=== PATIENT | female | born 1975 | race Caucasian/White ===

== ENCOUNTER 2020-04-19 22:09 | Emergency (ER) | payer BC ==
[2020-04-19] MEDS ORDERED: Ticagrelor 90 MG Tab PO ONE (22:15)
[2020-04-19] MEDS ORDERED: Famotidine 20 MG/2 ML SDV IVPUSH ONE (22:15)
[2020-04-19] MEDS ORDERED: Sodium Chloride 0.9% 10 ML Syringe FLUSH PRN (22:15)
[2020-04-19] MEDS ORDERED: Aspirin 81 MG Tab.Chew CHEW ONE (22:15)
--- NOTE | 2020-04-19 22:15 | EDM.PDOC ---
ED HPI GENERAL MEDICAL PROBLEM - General Chief Complaint: Chest Pain Stated Complaint: chest pain Time Seen by Provider: 04/19/20 22:10 Source of Information: Reports: Patient, EMS, EMS Notes Reviewed, Old Records ([facility] chart/EMR) History Limitations: Reports: Uncooperative - History of Present Illness INITIAL COMMENTS - FREE TEXT/NARRATIVE: The patient was brought to the emergency room via ambulance with EMT accompaniment with no treatment in route. Note the patient began experiencing 9/10 retrosternal chest pressure and tightness, which was associated with some nausea and diaphoresis with symptoms similar to her panic attacks in the past. The patient did take 2 coated baby aspirin shortly prior to arrival of the value analyst with no other treatment prior to arrival to this facility. Note that patient did have some heartburn type symptoms at about 1900 hrs. this evening. The patient denies any radiation of the chest pain, heart flutter, dizziness, orthostasis, orthopnea, paresthesias, recent decreased exercise tolerance, or any other anginal-type symptoms. No recent history of other abdominal pain, emesis, diarrhea, melena, gross hematochezia, or any food intolerance, including fatty foods, etc.. No history of gross hematuria, colic, or other UTI symptoms. The patient also denies any recent fever, cough, wheezing, dyspnea, etc.. Symptoms are completely resolved at time of arrival to this facility. Note that the patient also did take her meloxicam and two 5 mg tablets of oxycodone at 1600 hrs. this afternoon secondary to chronic hip pain. Onset: Today, Sudden Onset Date: 04/19/20 Onset Time: 21:00 Duration: Resolved Prior to Arrival Location: Reports: Chest. Denies: Head, Neck, Abdomen, Back, Upper Extremity, Left, Upper Extremity, Right, Radiates to Quality: Reports: Pressure, Same as Previous Episode Severity: Severe Improves with: Reports: Medication Worsens with: Reports: None Context: Reports: Other (As above). Denies: Sick Contact, Trauma Associated Symptoms: Reports: Chest Pain, Diaphoresis, Nausea/Vomiting (No emesis). 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, Other Medication(s) (As above) Sternum Pain Score (Numeric/FACES): 0 - Related Data Allergies Allergy/AdvReac Type Severity Reaction Status Date / Time No Known Allergies Allergy Verified 04/19/20 22:10 Home Meds: Home Meds Aspirin [Aspirin EC] 81 mg PO ASDIRECTED 04/19/20 [History] Meloxicam 15 mg PO DAILY 04/19/20 [History] traMADol [Ultram] 50 mg PO Q6HR 04/19/20 [History] Past Medical History HEENT History: Reports: Impaired Vision, Other (See Below) Other HEENT History: Patient wears glasses Gastrointestinal History: Reports: Gastritis, GERD 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 Psychiatric History: Reports: Addiction, Anxiety, Depression, Panic Attack, Other (See Below) Other Psychiatric History: Chronic narcotic use, including tramadol and oxy codone, for her arthritis. - Infectious Disease History Infectious Disease History: Reports: Mononucleosis, Other (See Below) Other Infectious Disease History: Sepsis from cellulitis infection on 12/04/2009. - Past Surgical History GI Surgical History: Reports: EGD, Other (See Below) Other GI Surgeries/Procedures: Negative EGD on 12/13/2001. - Past Imaging History Past Imaging History: Reports: Mammogram (Last on 04/20/2019.), MRI (Right ankle on 10/09/2010), Stress Testing (Negative Cardiolite stress test on 03/27/2005 with ejection fraction of 55%.), Ultrasound (Bladder and pelvic ultrasound on 03/31/2013.) Social & Family History - Tobacco Use Smoking Status *Q: Current Every Day Smoker Tobacco Use Within Last Twelve Months: Cigarettes Years of Tobacco use: 25 Packs/Tins Daily: 1 Used Tobacco, but Quit: No Smoking Cessation Information Provided To Patient: Yes ED ROS GENERAL - Review of Systems Review Of Systems: Comprehensive ROS is negative, except as noted in HPI. ED EXAM, GENERAL - Physical Exam Exam: See Below General Appearance: Alert, WD/WN, No Apparent Distress, Anxious (Moderate) Head: Atraumatic, Normocephalic. No: Facial Swelling, Facial Tenderness, Sinus Tenderness Neck: Normal Inspection, Supple, Non-Tender, Full Range of Motion. No: Carotid Bruit, Lymphadenopathy (L), Lymphadenopathy (R), Thyromegaly Respiratory/Chest: No Respiratory Distress, Lungs Clear, Normal Breath Sounds, No Accessory Muscle Use, Chest Non-Tender. No: Pleural Rub, Retractions Cardiovascular: Normal Peripheral Pulses, Regular Rate, Rhythm, No Edema, No Gallop, No JVD, No Murmur, No Rub. No: Gallop/S3, Gallop/S4, Friction Rub Peripheral Pulses: 2+: Radial (L), Radial (R) GI/Abdominal: Normal Bowel Sounds, Soft, Non-Tender, No Organomegaly, No Distention, No Abnormal Bruit, No Mass. No: Guarding (Female) Exam: Deferred Rectal (Female) Exam: Deferred Back Exam: Normal Inspection, Full Range of Motion. No: CVA Tenderness (L), CVA Tenderness (R), Muscle Spasm Extremities: Normal Inspection, Normal Range of Motion, Non-Tender, No Pedal Edema, Normal Capillary Refill. No: Phoebe's Sign Neurological: Alert, Oriented, CN II-XII Intact, Normal Cognition, Normal Gait, No Motor/Sensory Deficits Psychiatric: Anxious (Moderate), Depressed Mood (Mild to moderate with adequate eye contact) Skin Exam: Warm, Dry, Intact, Normal Color, No Rash, Tattoo(s) (Multiple). No: Diaphoretic, Wound/Incision Lymphatic: No Adenopathy EKG INTERPRETATION EKG Date: 04/19/20 Time: 22:13 Rhythm: NSR Rate (Beats/Min): 66 Hobbs: Normal P-Wave: Present QRS: Normal ST-T: Normal (T wave inversion in lead V1) QT: Normal OH/PQ Interval: 0.13 seconds representing a short OH interval with no delta waves noted. Pulmonary hypertension by EKG. Comparison: NA - No Prior EKG (No recent EKG for comparison) EKG Interpretation Comments: 1. No acute ischemic changes 2. Short OH interval 3. Pulmonary hypertension by EKG Course - Vital Signs Last Recorded V/S: Last Vital Signs Temp 36.7 C 04/19/20 22:14 Pulse 71 04/19/20 22:50 Resp 19 04/19/20 22:50 BP 108/63 04/19/20 22:50 Pulse Ox 100 04/19/20 22:50 Vital Signs - 24 hr 04/19/20 04/19/20 04/19/20 22:14 22:16 22:30 Temperature [ 36.7 C Temporal] Pulse, 70 68 66 Peripheral [ Right Pulse Oximetry] Respiratory 12 15 18 Rate Blood Pressure 112/58 L 112/62 116/81 [Right Upper Arm] O2 Sat by Pulse 100 100 100 Oximetry 04/19/20 22:50 Temperature [ Temporal] Pulse, 71 Peripheral [ Right Pulse Oximetry] Respiratory 19 Rate Blood Pressure 108/63 [Right Upper Arm] O2 Sat by Pulse 100 Oximetry - Orders/Labs/Meds Orders: Active Orders 24 hr Category Date Time Status Chest 1V Frontal [CR] Stat Exams 04/19/20 22:16 Taken Obtain Past Medical Record [OM.PC] Urgent Oth 04/19/20 22:16 Active Peripheral IV Insertion Adult [OM.PC] Stat Oth 04/19/20 22:16 Ordered Resuscitation Status Stat Resus Stat 04/19/20 22:15 Ordered Labs: Laboratory Tests 04/19/20 04/19/20 04/19/20 Range/Units 20:12 20:12 20:12 WBC (4.0-10.2) K/uL RBC (3.77-5.09) M/uL Hgb (11.7-15.5) g/dL Hct (34.0-46.0) % MCV (84.0-98.0) fL MCH (28.2-33.3) pg MCHC (31.7-36.0) g/dL RDW (11.2-14.1) % Plt Count (150-350) K/uL Neut % (Auto) (45.0-80.0) % Lymph % (Auto) (10.0-50.0) % Park % (Auto) (2.0-14.0) % Eos % (Auto) (0.0-5.0) % Baso % (Auto) (0.0-2.0) % Neut # (Auto) (1.40-7.00) K/uL Lymph # (Auto) (0.50-3.50) K/uL Park # (Auto) (0.00-1.00) K/uL Eos # (Auto) (0.00-0.50) K/uL Baso # (Auto) (0.00-0.20) K/uL PT 9.2 L (9.5-12.0) SEC INR 0.9 APTT 25.4 (24.5-32.8) SEC D-Dimer, Quantitative < 100 (0-400) ng/mL Sodium 135 L (136-145) mmol/L Potassium 3.5 (3.5-5.1) mmol/L Chloride 101 (98-107) mmol/L Carbon Dioxide 25.9 (21.0-32.0) mmol/L BUN 16 (7-18) mg/dL Creatinine 0.69 (0.51-1.17) mg/dL Est Cr Clr Drug Dosing 85.17 mL/min Estimated GFR (MDRD) > 60 mL/min Glucose 131 H (74-106) mg/dL Lactic Acid (0.4-2.0) mmol/L Uric Acid 3.9 (2.6-7.2) mg/dL Calcium 8.4 L (8.5-10.1) mg/dL Magnesium 2.0 (1.8-2.4) mg/dL Total Bilirubin 0.5 (0.2-1.0) mg/dL AST 15 (15-37) U/L ALT 21 (12-78) U/L Alkaline Phosphatase 73 (46-116) IU/L Creatine Kinase 49 (26-308) U/L Creatine Kinase Index 1.6 (0.0-2.5) % CK-MB (CK-2) 0.80 (0.00-3.60) ng/mL Troponin I 0.007 (0.000-0.056) ng/mL NT-Pro-B Natriuret Pep 136 H (0-125) pg/mL Total Protein 7.0 (6.4-8.2) g/dL Albumin 3.5 (3.4-5.0) g/dL TSH, Ultra Sensitive 6.914 H (0.358-3.740) mIU/mL HCG, Qual (NEGATIVE) 04/19/20 04/19/20 04/19/20 Range/Units 20:12 20:12 22:12 WBC 15.8 H (4.0-10.2) K/uL RBC 4.24 (3.77-5.09) M/uL Hgb 13.6 (11.7-15.5) g/dL Hct 40.7 (34.0-46.0) % MCV 96.0 (84.0-98.0) fL MCH 32.1 (28.2-33.3) pg MCHC 33.4 (31.7-36.0) g/dL RDW 13.3 (11.2-14.1) % Plt Count 196 (150-350) K/uL Neut % (Auto) 78.2 (45.0-80.0) % Lymph % (Auto) 8.9 L (10.0-50.0) % Park % (Auto) 10.6 (2.0-14.0) % Eos % (Auto) 2.0 (0.0-5.0) % Baso % (Auto) 0.3 (0.0-2.0) % Neut # (Auto) 12.34 H (1.40-7.00) K/uL Lymph # (Auto) 1.40 (0.50-3.50) K/uL Park # (Auto) 1.68 H (0.00-1.00) K/uL Eos # (Auto) 0.32 (0.00-0.50) K/uL Baso # (Auto) 0.05 (0.00-0.20) K/uL PT (9.5-12.0) SEC INR APTT (24.5-32.8) SEC D-Dimer, Quantitative (0-400) ng/mL Sodium (136-145) mmol/L Potassium (3.5-5.1) mmol/L Chloride (98-107) mmol/L Carbon Dioxide (21.0-32.0) mmol/L BUN (7-18) mg/dL Creatinine (0.51-1.17) mg/dL Est Cr Clr Drug Dosing mL/min Estimated GFR (MDRD) mL/min Glucose (74-106) mg/dL Lactic Acid 0.6 (0.4-2.0) mmol/L Uric Acid (2.6-7.2) mg/dL Calcium (8.5-10.1) mg/dL Magnesium (1.8-2.4) mg/dL Total Bilirubin (0.2-1.0) mg/dL AST (15-37) U/L ALT (12-78) U/L Alkaline Phosphatase (46-116) IU/L Creatine Kinase (26-308) U/L Creatine Kinase Index (0.0-2.5) % CK-MB (CK-2) (0.00-3.60) ng/mL Troponin I (0.000-0.056) ng/mL NT-Pro-B Natriuret Pep (0-125) pg/mL Total Protein (6.4-8.2) g/dL Albumin (3.4-5.0) g/dL TSH, Ultra Sensitive (0.358-3.740) mIU/mL HCG, Qual Negative (NEGATIVE) Meds: Medications Discontinued Medications Generic Name Dose Route Start Last Admin Trade Name Freq PRN Reason Stop Dose Admin Aspirin 162 mg 04/19/20 22:15 04/19/20 22:29 Aspirin CHEW 04/19/20 22:16 162 mg ONETIME ONE Administration Famotidine 40 mg 04/19/20 22:15 04/19/20 22:30 Pepcid IVPUSH 04/19/20 22:16 40 mg ONETIME ONE Administration Sodium Chloride 10 ml 04/19/20 22:15 04/19/20 22:30 Saline Flush FLUSH 10 ml ASDIRECTED PRN Administration Keep Vein Open Ticagrelor 180 mg 04/19/20 22:15 04/19/20 22:29 Brilinta PO 04/19/20 22:16 180 mg ONETIME ONE Administration - Radiology Interpretation Free Text/Narrative:: 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 Departure - Departure Time of Disposition: 23:20 Disposition: Against Medical Advice 07 Condition: Fair Clinical Impression: Peptic reflux disease, Mixed anxiety depressive disorder, Tobacco abuse counseling, Hypocalcemia, Hyponatremia Chest pain Qualifiers: Chest pain type: precordial pain Qualified Code(s): R07.2 - Precordial pain Osteoarthritis Qualifiers: Osteoarthritis location: multiple joints Osteoarthritis type: primary Qualified Code(s): M89.49 - Other hypertrophic osteoarthropathy, multiple sites Instructions: Steps to Quit Smoking, [id number], Health Risks of Smoking, Nonspecific Chest Pain, Adult, [id number] Forms: ED Department Discharge Additional Instructions: 1. Follow-up with your regular provider early tomorrow morning for reevaluation and recommended repeat CBC, CK, CK-MB, troponin I, and EKG 2. 25% maximum activity level until cleared by your regular provider. Consider scheduling cardiac work-up on an outpatient basis 3. Stop all tobacco use BRANDY as directed/per provided information and consider contacting Quit LIne, etc.. 4. Immediately after this visit verify that your cellular telephone's voicemail has been activated and is empty. Also verify that your home telephone's answering machine is operating properly and has space to receive messages. Note that it is sometimes necessary for us to be able to contact you at a later date to discuss your medical care. 5. Please remember that we are ALWAYS here for you and want to answer any questions you may have. Feel free to call the hospital any time and we call you back BRANDY. Sepsis Event Note (ED) - Focused Exam Vital Signs: Vital Signs Temp Pulse Resp BP Pulse Ox 04/19/20 22:50 71 19 108/63 100 04/19/20 22:30 66 18 116/81 100 04/19/20 22:16 68 15 112/62 100 04/19/20 22:14 36.7 C 70 12 112/58 L 100 - Problem List & Annotations (1) Chest pain SNOMED Code(s): 64097503 Code(s): R07.9 - CHEST PAIN, UNSPECIFIED Status: Acute Priority: High Onset Date: 04/19/20 Annotation/Comment:: Chest pain protocol initiated upon patient's arrival to the emergency room with only 2 baby aspirin given secondary to previous baby aspirin taken prior to arrival to this facility. The patient refused recommended hospitalization for rule out VT and did leave AMA. Close follow-up by regular provider as per discharge instructions. Patient strongly feels that her chest pain symptoms are related to her panic attack rather than heart disease. Cardiac work-up is advisable, which was also discussed with the patient. Note moderate leukocytosis likely secondary to stress reaction with close follow-up by regular provider as per discharge instructions. Qualifiers: Chest pain type: precordial pain Qualified Code(s): R07.2 - Precordial pain (2) Peptic reflux disease SNOMED Code(s): 576833179 Code(s): K21.9 - GASTRO-ESOPHAGEAL REFLUX DISEASE WITHOUT ESOPHAGITIS Status: Chronic Priority: Medium Annotation/Comment:: High-dose IV Pepcid given in the emergency room. Continue to observe closely by her regular provider (3) Osteoarthritis SNOMED Code(s): 864704069 Code(s): M19.90 - UNSPECIFIED OSTEOARTHRITIS, UNSPECIFIED SITE Status: Chronic Priority: Medium Annotation/Comment:: Stable by patient history with chronic pain, currently being evaluated by her regular provider. Qualifiers: Osteoarthritis location: multiple joints Osteoarthritis type: primary Qualified Code(s): M89.49 - Other hypertrophic osteoarthropathy, multiple sites (4) Mixed anxiety depressive disorder SNOMED Code(s): 321143873 Code(s): F41.8 - OTHER SPECIFIED ANXIETY DISORDERS Status: Chronic Priority: Medium Annotation/Comment:: Poor control based on today's evaluation with no current medical therapy. Note history of panic attacks possibly earlier today. Close follow-up by regular provider. Note that patient was uncooperative and did not wish to discuss any of her previous medical history with majority of history taken from previous medical records. (5) Tobacco abuse counseling SNOMED Code(s): 379753443, 258142722, 002995037 Code(s): Z71.6 - TOBACCO ABUSE COUNSELING Status: Chronic Priority: Medium Annotation/Comment:: Tobacco cessation information provided at discharge. Patient uncooperative as above. (6) Hypocalcemia SNOMED Code(s): 0920810 Code(s): E83.51 - HYPOCALCEMIA Status: Acute Priority: Medium Onset Date: 04/19/20 Annotation/Comment:: Observe for now (7) Hyponatremia SNOMED Code(s): 49261155 Code(s): E87.1 - HYPO-OSMOLALITY AND HYPONATREMIA Status: Acute Priority: Medium Onset Date: 04/19/20 Annotation/Comment:: Observe for now. No e vidence of CHF. - Problem List Review Problem List Initiated/Reviewed/Updated: Yes - My Orders Last 24 Hours: My Active Orders 04/19/20 22:15 Resuscitation Status Stat 04/19/20 22:16 Chest 1V Frontal [CR] Stat Obtain Past Medical Record [OM.PC] Urgent Peripheral IV Insertion Adult [OM.PC] Stat - Assessment/Plan Last 24 Hours: My Active Orders 04/19/20 22:15 Resuscitation Status Stat 04/19/20 22:16 Chest 1V Frontal [CR] Stat Obtain Past Medical Record [OM.PC] Urgent Peripheral IV Insertion Adult [OM.PC] Stat Assessment:: As above. Plan: As above. Extensive precautions were given to the patient, who is in agreement with the treatment plan. See Patient Instructions for further treatment and plan.
[2020-04-19 22:32] LABS: PTT,PARTIAL THROMBOPLSTIN TIME 25.4 SEC (24.5-32.8)
[2020-04-19 22:45] LABS: CHLORIDE,CL 101 mmol/L (98-107); SODIUM,NA 135 mmol/L (136-145)
== END 2020-04-19 23:20 | disposition left against medical advice (07) ==
LOC: LL.ED 22:09
DX: K21.9 Gastro-esophageal reflux disease without esophagitis (principal); F41.8 Other specified anxiety disorders; Z71.6 Tobacco abuse counseling; E83.51 Hypocalcemia; E87.1 Hypo-osmolality and hyponatremia; M89.49 Other hypertrophic osteoarthropathy, multiple sites; R94.31 Abnormal electrocardiogram [ECG] [EKG]; F17.210 Nicotine dependence, cigarettes, uncomplicated; Z79.899 Other long term (current) drug therapy
CPT/HCPCS: 36415; 71045; 80053; 82550; 82553; 83605; 83735; 83880; 84443; 84484; 84550; 84703; 85025; 85379; 85610; 85730; 93005; 99285; A9270; J3490; 93010; 99284